=== PATIENT | male | born 1965 | race Caucasian/White ===

== ENCOUNTER 2017-08-15 15:30 | Emergency (ER) | payer OTHER, SELFPAY ==
[2017-08-15 15:31] VITALS: BP 161/101; PULSE 103; RESP 18; TEMP 36.8; O2SAT 100; BMI 32.5
--- NOTE | 2017-08-15 15:50 | EKG12_ITS ---
Test Reason : DIZZY Blood Pressure : / mmHG Vent. Rate : 087 BPM Atrial Rate : 087 BPM P-R Int : 174 ms QRS Dur : 094 ms QT Int : 362 ms P-R-T Axes : 055 008 055 degrees QTc Int : 435 ms Normal sinus rhythm Normal ECG Confirmed by KALEY CALDERON, XU ([id number]), editor department PEPE BYNUM ([id number]) on 08/18/2017 3:33:10 PM Referred By: CRYSTAL Confirmed By:XU ROCHE MD
--- NOTE | 2017-08-15 15:51 | ED.VISSUMM ---
- ER Visit Summary Date of Service: 08/15/17 Chief Complaint: [] Dizziness History of Present Illness: The patient is a 51 M [] complaining of dizziness after exposure to what he reports was paint fumes/smell from a dealmaker room here at [facility]. 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 He reports other employees noticed a small. He was told to present to the emergency department for further evaluation. Reports symptoms have improved however he reports being still slightly dizzy. Physical Examination: [] Afebrile, vital signs stable. Cardiovascular exam is regular rate and rhythm. Lungs are clear to auscultation. Abdomen soft and nontender. Test Results: [] CBC and BMP are within normal limits. EKG shows normal sinus rhythm with rate of 87 without ischemic changes. Emergency Department Course and Treatment: [] Was placed on nasal cannula oxygen. On serial exam he had improvement of symptoms and was encouraged to rest and return to work when normally scheduled. I do not feel any further diagnostic or laboratory testing is warranted. Patient denies the possibility of carbon monoxide or any combustible gas as a result of the smell. Treatment Plan: [] Follow-up with PCP. Disposition: [] Discharge, stable. Impression: [] Fume exposure Dizziness This note was generated with [employer] dictation software. It may contain incorrect words, spelling, and punctuation that were not noted in review of the chart prior to signing ED Disposition - Plan for ED Patient: Chief Complaint: Occup Expose Referrals: Kennedy Ireland [Primary Care Provider] -
--- NOTE | 2017-08-15 15:54 | ED.DCSUM_ITS ---
- ER Visit Summary Date of Service: 08/15/17 Chief Complaint: [] Dizziness History of Present Illness: The patient is a 51 M [] complaining of dizziness after exposure to what he reports was paint fumes/smell from a in room dining server room here at [facility]. 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 He reports other employees noticed a small. He was told to present to the emergency department for further evaluation. Reports symptoms have improved however he reports being still slightly dizzy. Physical Examination: [] Afebrile, vital signs stable. Cardiovascular exam is regular rate and rhythm. Lungs are clear to auscultation. Abdomen soft and nontender. Test Results: [] CBC and BMP are within normal limits. EKG shows normal sinus rhythm with rate of 87 without ischemic changes. Emergency Department Course and Treatment: [] Was placed on nasal cannula oxygen. On serial exam he had improvement of symptoms and was encouraged to rest and return to work when normally scheduled. I do not feel any further diagnostic or laboratory testing is warranted. Patient denies the possibility of carbon monoxide or any combustible gas as a result of the smell. Treatment Plan: [] Follow-up with PCP. Disposition: [] Discharge, stable. Impression: [] Fume exposure Dizziness This note was generated with [employer] dictation software. It may contain incorrect words, spelling, and punctuation that were not noted in review of the chart prior to signing ED Disposition - Plan for ED Patient: Chief Complaint: Occup Expose Referrals: Kennedy Ireland [Primary Care Provider] -
[2017-08-15 16:16] LABS: Absolute Lymphocyte Count 1.88 X10^3/ul (0.83-4.51); Absolute Neutrophil Count 2.6 X10^3/uL (2.0-7.7); Basophil# 0.05 X10^3/uL; Basophil% 0.9 % (0-1); Eosinophil# 0.19 X10^3/uL; Eosinophils% 3.5 % (0-5); Lymphocyte # 1.88 X10^3/ul (4.0); Lymphocyte % 34.5 % (19-41); Mean Corp Hgb Conc 35.6 g/gl (32-36); Mean Corpuscular Hgb 31.4 pg (27.0-32.0); Mean Corpuscular Volume 88.2 fL (80-94); Mean Platelet Vol. 10.3 fl (6.2-12.0); Monocyte# 0.69 X10^3/uL; Monocyte% 12.7 % (0-10); Neutrophil # 2.63 X10^3/uL (2.7-7.7); Neutrophil % 48.2 % (47-70); Platelet Count 181 K/mm3 (150-450); RBC Distribution Width CV 12.7 % (11.6-14.6); RBC Distribution Width SD 41.1 fl (35.1-43.9); White Blood Count 5.5 K/mm3 (4.4-11.0)
[2017-08-15 16:18] LABS: POSITIVE COUNT NO; POSITIVE DIFFERENTIAL NO; POSITIVE MORPHOLOGY NO
[2017-08-15 16:34] LABS: Anion Gap 6 (5-15); BUN 11 mg/dL (7-18); BUN/Creat Ratio 10.1 RATIO (10-20); Calcium,Total 8.8 mg/dL (8.5-10.1); Chloride 106 mmol/L (98-107); Creatinine, Serum 1.09 mg/dL (0.70-1.30); EST Glomerular Filtration Rate 75 mL/min (>60); Est Glom Filt Rate - Afr Amer 91 mL/min (>60); Estimated Creatinine Clearance 81.86 ml/min; Glucose 117 mg/dL (74-106); Potassium 4.3 mmol/L (3.5-5.1); Sodium Level 141 mmol/L (136-145)
--- NOTE | 2017-08-15 16:46 | ED.DEP ---
ED Disposition - Plan for ED Patient: Disposition: Home or Assisted Living Chief Complaint: Occup Expose Instructions: ED Inhalation Chemical Referrals: Kennedy Ireland [Primary Care Provider] - [facility] [GROUP OF PHYSICIANS] -
--- NOTE | 2017-08-15 16:47 | DCINST.ED_ITS ---
ED Disposition - Plan for ED Patient: Disposition: Home or Assisted Living Chief Complaint: Occup Expose Instructions: ED Inhalation Chemical Referrals: Kennedy rIeland [Primary Care Provider] - [facility] [GROUP OF PHYSICIANS] -
[2017-08-15 17:00] VITALS: BP 143/88; PULSE 61; RESP 16; O2SAT 98
== END 2017-08-15 17:01 | disposition home or self-care (01) ==
PROVIDERS: Emergency Provider Emergency Medicine; Family Provider Family Medicine; PCP Family Medicine
DX: T59.91XA Toxic effect of unspecified gases, fumes and vapors, accidental (unintentional), initial encounter (principal); R42 Dizziness and giddiness; X58.XXXA Exposure to other specified factors, initial encounter; Y93.89 Activity, other specified; Y92.238 Other place in hospital as the place of occurrence of the external cause; Y99.0 Civilian activity done for income or pay; F32.9 Major depressive disorder, single episode, unspecified; F41.9 Anxiety disorder, unspecified; Z79.899 Other long term (current) drug therapy
CPT/HCPCS: 80048; 85025; 93005; 99283; A4216

== ENCOUNTER → 2017-12-12 07:04 | Outpatient (CLI) | payer OTHER, SELFPAY ==
--- NOTE | 2017-12-12 07:07 | MRI_ITS ---
STUDY: MRI LEFT SHOULDER REASON FOR EXAM: Anterior left shoulder pain and limited range of motion. TECHNIQUE: Standardized fat and water weighted pulse sequences were obtained in all 3 orthogonal planes. COMPARISON: Radiographs 04/16/2017. FINDINGS: There is mild supraspinatus tendinosis and a small linear high grade partial-thickness tear of the articular surface of the distal supraspinatus tendon (T2 coronal image 10). Normal infraspinatus tendon. There is subscapularis tendinosis (proton density axial image 14) without discrete tendon tear. Normal teres minor tendon. Normal supraspinatus muscle. Normal infraspinatus muscle. Normal subscapularis muscle. Normal teres minor muscle. Normal glenohumeral articulation. There are very small cysts in the humeral head. Normal biceps labral complex. Normal intracapsular long biceps tendon. There is fluid in the bicipital tendon sheath (proton-density axial images 15-19) with septations. Normal labrum. There is acromioclavicular arthrosis with mild hypertrophic changes effacing the subacromial fat (T2 sagittal image 8). There is a Type I morphology (flat undersurface), with a neutral orientation. There is no subacromial-subdeltoid bursal fluid. There is thickening of the coracohumeral ligament (T2 sagittal image 10) and soft tissue fullness in the rotator cuff interval (T2 sagittal image 10; T2 coronal image 16). Normal deltoid muscle. Normal trapezius muscle. MRI/Upper Ext Joint Only(Routine) IMPRESSION: Small linear partial-thickness tear and mild tendinosis of the supraspinatus tendon. Subscapularis tendinosis. Bicipital tenosynovitis. Acromioclavicular arthrosis. Thickening of the coracohumeral ligament and soft tissue fullness in the rotator cuff interval, suggestive of adhesive capsulitis. Electronically Signed: Shiv Griffith MD at 8:43 EDT Tel , Service support ,
== END ==
PROVIDERS: Family Provider Family Medicine; PCP Family Medicine; Visit Provider Orthopaedic Surgery
DX: M75.02 Adhesive capsulitis of left shoulder (principal)
CPT/HCPCS: 73221

== ENCOUNTER 2018-02-18 09:00 | Day surgery (SDC) | payer OTHER, SELFPAY ==
[2018-02-18] VITALS (8 sets, daily range): BP systolic 133–161; BP diastolic 85–125; PULSE 72–96; RESP 14–18; TEMP 36.2–36.5; O2SAT 92–96; BMI 32.1
[2018-02-18] MEDS: Cefazolin 2 GM in 0.9% Normal Saline 100 ML IV (10:12)
--- NOTE | 2018-02-18 10:12 | DCINST_ITS ---
Discharge Diet: No Restrictions - remove dressings in 4 days and apply bandaids to incision site, may get incision wet after 4 days, follow up in 2 weeks in office, call with concerns, remove sling and start moving arm pod1, only use sling as tolerated may remove pod 1 Discharge Activity: May Not Drive May shower in (days): 1 Ice area for (Minutes): 20 - Every hour while awake. Weight Bearing Status: Weight bearing as tolerated Keep extremity elevated above heart level: Operative Extremity Call your doctor if your incision/area has: Continuous Slow Oozing, Sudden Increased Bleeding, Increased Pain/ Swelling, Increased Redness, Foul Smelling Discharge Call your doctor if you observe: Fever of 101 or Higher, Coldness, Increased Pain, Numbness or Tingling, Change in Color, Calf discomfort Allergies/Adverse Reactions: Allergies apple Allergy (Verified 02/18/18 09:32) Food Allergy asparagus Allergy (Verified 02/18/18 09:32) Food Allergy peanut Allergy (Verified 02/18/18 09:32) Food Allergy pepper (genus Capsicum) [pepper] Allergy (Verified 02/18/18 09:32) Food Allergy spinach Allergy (Verified 02/18/18 09:32) Food Allergy amoxicillin [From Augmentin] Adverse Reaction (Verified 02/18/18 09:32) Upset Stomach clavulanic acid [From Augmentin] Adverse Reaction (Verified 02/18/18 09:32) Upset Stomach codeine Adverse Reaction (Verified 02/18/18 09:32) Upset Stomach Medications to take at Discharge Clonazepam [Klonopin] 0.5 mg PO TID PRN 08/15/17 Clonidine HCl [Clonidine HCl] 0.1 mg PO QHS 08/15/17 Venlafaxine XR [Effexor Xr] 3 tab PO QHS 08/15/17 Hydrocodone Bitart/Apap 5-325 [[place] 5MG-325MG] 1 - 2 tablet PO Q6H PRN PRN 5 Days #40 tablet 02/18/18 Zolpidem Tartrate [Ambien (Generic)] 5 mg PO QHS PRN PRN #14 tablet 02/18/18 The following prescriptions were given: Hydrocodone Bitart/Apap 5-325 [[place] 5MG-325MG] 1 - 2 tablet PO Q6H PRN PRN 5 Days #40 tablet PRN Reason: Pain Zolpidem Tartrate [Ambien (Generic)] 5 mg PO QHS PRN PRN #14 tablet PRN Reason: Insomnia Primary Care Physician: Kennedy Ireland [Primary Care Provider] - Test Results: Test results from this visit will be discussed in further detail at your follow- up appointment, if applicable. Please Follow Up With: Ruchi Fernandes, - [phone]
--- NOTE | 2018-02-18 10:12 | PCM.OPRPT ---
Report of Operation Date of Procedure: 02/18/18 Pre-Operative Diagnosis: left shoulder rc tendinosis, subacormial impingment syndrome, acromioclavicular osteoarthritis, biceps tenosynovitis Post-Operative Diagnosis: same Surgery/Procedure Performed:: sars, rc debridement, biceps tenotomy, subacromial decompression/acromioplasty, distal clavicle resection reading intervention teacher: Toi Parekh reading intervention teacher: Leslie Jimenez Type of Anesthesia:: General Anesthesiologist: Christiano Matos Estimated Blood Loss (mL): minimal Fluids Replaced: 900cc lr Description of Procedure: Preop note Patient is a 52-year-old male with left shoulder pain. Patient failed conservative treatment continued shoulder pain elected proceed with shoulder scope. Risks benefits and alternatives surgery discussed with patient. Risks including but not limited to blood loss, blood clot, infection, neurovascular injury, failure procedure, loss of life and loss of limb. Patient is aware and would like proceed with left shoulder arthroscopy repair is indicated. MRI confirms biceps tendinosis which is where most of his pain is as well as impingement syndrome and some AC pain. Operative note Patient seen and examined preoperative holding area. Left shoulder was marked. Patient is brought to the operating room placed supine on the operating table. Signing, anesthesia, antibiotics were administered. Left arm was prepped and draped in usual sterile fashion after beachchair positioning. Please note that care home through beachchair we did reposition we recheck his blood pressure which was stable throughout. All bony pulses well-padded SCDs placed on his bilateral lower extremity's. Left arm was prepped and draped in usual sterile fashion as aforementioned we then marked our marked out our bony landmarks for portal placement. We insufflated the glenohumeral joint from the posterior aspect with 60 cc of normal saline had good return. Timeout was performed. Then used 11 blade to create the posterior portal. We began our diagnostic arthroscopy possibly. Please note that the shoulder was quite injected and the biceps tendon we created an anterior portal under direct visualization. The subscap was intact his rotator cuff was intact a little small leading edge tear which was gently debrided after creating anterior portal under direct visualization. We then moved from sorry released the biceps at its origin and then inserted a shaver to gently debride back the biceps labral junction to a stable rim which we did have there are no loose bodies in the inferior recess of the glenohumeral joint was intact. We then irrigated the glenohumeral joint with copious nonsterile saline and moved to the subacromial space. Please note that prior to operative intervention we did assess his motion as there is question on his MRI that he has some adhesive capsulitis and he was symmetric and his motion in all planes. We moved to the subacromial space. Created a lateral lateral portal under direct visualization. Patient had quite thickened bursa throughout especially his posterior [employer]. We use a combination of a shaver and a burner to resect the [employer]. We then performed our acromioplasty there is a little bit of a aberration an anterior lateral that we co-plane. We then moved to his AC joint we made a trans-AC portal and resected about a centimeter to 8 mm. We then irrigated the shoulder with copious amounts of sterile saline. Specifically the subacromial space. The portals were closed with interrupted nylon stitches. Sterile dressings were applied patient was placed in a regular sling. Patient tolerated procedure well there are no comp occasions transferred to recovery room in stable condition. Next Postoperative note Weight-bear as tolerated left arm Remove sling as much as possible next Follow-up in 2 weeks Pain at the hospital pharmacy We will give pictures to patient at 2 week visit Call with concerns This note was generated with [employer] dictation software. It may contain incorrect words, spelling, and punctuation that were not noted in checking the note before signing.
[2018-02-18] MEDS: Mupirocin Ointment 22gm Tube 1 APPLIC (11:30)
== END 2018-02-18 15:13 | disposition home or self-care (01) ==
LOC: SDC 09:01 → AC 09:03
PROVIDERS: Family Provider Family Medicine; PCP Family Medicine; Visit Provider Orthopaedic Surgery
PROC: (CPT 29827; principal; 2018-02-18 10:25)
DX: M75.22 Bicipital tendinitis, left shoulder (principal); M75.102 Unspecified rotator cuff tear or rupture of left shoulder, not specified as traumatic; M75.42 Impingement syndrome of left shoulder; M19.012 Primary osteoarthritis, left shoulder; Z79.899 Other long term (current) drug therapy
CPT/HCPCS: 01630; 23405; 29824; 29826; 29827; 64415; J7120; J2405